=== PATIENT | male | born 1960 | race Hispanic/Latino ===

== ENCOUNTER 2016-10-19 11:13 | Emergency (ER) | payer BC ==
[2016-10-19 11:30] VITALS: TEMP 96.6
--- NOTE | 2016-10-19 11:36 | ED PDOC ---
HPI: Male Pain Time Seen by Provider: 10/19/16 11:34 Chief Complaint (Provider): flank pain History Per: Patient Additional Complaint(s): 55-year-old male with history of kidney stones presents to emergency department with acute onset of right flank pain that started 4 hours ago. Patient also complains of nausea and dry heaving. He rates current pain as a 10 out of 10. No medication taken for pain relief prior to arrival. He states the last time he passed a stone was in 2003. Past Medical History Reviewed: Historical Data, Nursing Documentation, Vital Signs Vital Signs: Last Vital Signs Temp 96.6 F L 10/19/16 11:29 Pulse 75 10/19/16 11:29 Resp 21 10/19/16 11:29 BP 148/113 H 10/19/16 11:29 Pulse Ox 98 10/19/16 11:29 - Medical History PMH: Kidney Stones - Family History Family History: States: No Known Family Hx - Living Arrangements Living Arrangements: With Family - Social History Current smoker - smoking cessation education provided: Yes Alcohol: None Drugs: Denies - Home Medications Home Medications: Ambulatory Orders Medication Instructions Recorded Ibuprofen [Motrin Tab] 800 mg PO Q8 PRN #20 tab 10/19/16 Tamsulosin [Flomax] 0.4 mg PO DAILY #10 cap 10/19/16 - Allergies Allergies/Adverse Reactions: Allergies Allergy/AdvReac Type Severity Reaction Status Date / Time No Known Allergies Allergy Verified 10/19/16 11:42 Review of Systems ROS Statement: Except As Marked, All Systems Reviewed And Found Negative Constitutional: Negative for: Fever Cardiovascular: Negative for: Chest Pain Musculoskeletal: Positive for: Back Pain (flank) Physical Exam - Reviewed Nursing Documentation Reviewed: Yes Vital Signs Reviewed: Yes - Physical Exam Appears: Positive for: Well, Non-toxic, In Acute Distress Skin: Negative for: Rash Eye Exam: Positive for: Normal appearance Cardiovascular/Chest: Positive for: Regular Rate, Rhythm Respiratory: Positive for: Normal Breath Sounds Gastrointestinal/Abdominal: Positive for: Tenderness (RLQ) Back: Positive for: R CVA Tenderness (moderate). Negative for: L CVA Tenderness , Vertebral Tenderness Extremity: Negative for: Pedal Edema Neurologic/Psych: Positive for: Alert, Oriented - Laboratory Results Result Diagrams: 10/19/16 11:50 10/19/16 11:50 Urine dip results: Positive for: Blood (large). Negative for: Leukocyte Esterase, Nitrate, Ketones, Glucose, Bilirubin, Protein - ECG O2 Sat by Pulse Oximetry: 98 Pulse Ox Interpretation: Normal - Other Rad CT abd and pelvis without contrast X-Ray: Read By Radiologist X-Ray Interpretation: see below Medical Decision Making Medical Decision Making: Impression: Acute renal colic Plan: CT abdomen and pelvis without contrast CBC CMP IVF IV toradol IV zofran CT: IMPRESSION: Findings consistent with a recently passed a small approximately 2 mm in which is located in the pelvis which is now located in the right parasagittal posterior urinary bladder. Small fat containing umbilical hernia which also contains a knuckle of unobstructed small bowel. See above discussion for additional details. Patient returned from CAT scan and states he feels much better. Patient urinated and believes he may passed the stone. Call received from radiologist who confirms that CT does demonstrate a recently passed stone. Nausea and pain have resolved as per patient. Patient given prescriptions for Motrin and Flomax. He was advised to drink plenty of fluids. Patient was instructed to follow up with urologist in 1-2 days. Referral was provided. Patient is also aware he can return to ED anytime if acutely worse. Disposition - Clinical Impression Clinical Impression: Ureteral stone - Patient ED Disposition Is Patient to be Admitted: No Counseled Patient/Family Regarding: Studies Performed, Diagnosis, Need For Followup, Rx Given - Disposition Referrals: Jan Peck MD [Medical Doctor] - Shira Mckeon MD [Family Provider] - Disposition: Routine/Home Disposition Time: 13:36 Condition: IMPROVED Additional Instructions: Drink plenty of fluids. Take prescription meds as directed. Follow up with urologist in 1-2 days. Return any time to emergency department if acutely worse. Prescriptions: Ibuprofen [Motrin Tab] 800 mg PO Q8 PRN #20 tab PRN Reason: Pain, Moderate (4-7) Tamsulosin [Flomax] 0.4 mg PO DAILY #10 cap Instructions: Ureteral Stones (ED), Renal Colic (ED) Results - Lab Results Lab Results: 10/19/16 10/19/16 11:50 11:50 WBC 14.8 H RBC 4.83 Hgb 15.7 Hct 46.0 MCV 95.1 H MCH 32.4 H MCHC 34.1 RDW 13.9 Plt Count 232 MPV 8.6 Neut % (Auto) 83.3 H Lymph % (Auto) 11.0 L [place] % (Auto) 3.9 Eos % (Auto) 0.8 Baso % (Auto) 1.0 Neut # 12.3 H Lymph # 1.6 [place] # 0.6 Eos # 0.1 Baso # 0.1 Sodium 143 Potassium 4.5 Chloride 111 H Carbon Dioxide 18 L Anion Gap 19 BUN 19 Creatinine 1.3 Est GFR ( Amer) > 60 Est GFR (Non-Af Amer) 58 Random Glucose 139 H Calcium 9.5 Total Bilirubin 0.6 AST 29 ALT 50 Alkaline Phosphatase 75 Total Protein 7.9 Albumin 4.5 Globulin 3.5 Albumin/Globulin Ratio 1.3
[2016-10-19 11:37] VITALS: BMI 39.0
[2016-10-19] MEDS ORDERED: Sodium Chloride 0.9% 1,000 ML IV STA (11:37)
[2016-10-19 12:02] LABS: BASO # 0.1 K/uL (0.0-0.2); EOS # 0.1 K/uL (0.0-0.7); EOS % 0.8 % (0.0-4.0); HEMOGLOBIN 15.7 g/dL (12.0-18.0); LYMPH # 1.6 K/uL (1.0-4.3); MEAN CELL VOLUME 95.1 fl (80.0-94.0); MEAN CORPUSCULAR HEMOGLOBIN 32.4 pg (27.0-31.0); MEAN CORPUSCULAR HGB CONC 34.1 g/dL (33.0-37.0); MEAN PLATELET VOLUME 8.6 fl (7.2-11.7); MONO # 0.6 K/uL (0.0-0.8); MONO % 3.9 % (0.0-10.0); NEUT # 12.3 K/uL (1.8-7.0); NEUT % 83.3 % (50.0-75.0); RBC 4.83 Mil/uL (4.40-5.90); RED CELL DISTRIBUTION WIDTH 13.9 % (11.5-14.5); WHITE BLOOD COUNT 14.8 K/uL (4.8-10.8)
[2016-10-19 12:14] LABS: ALB/GLOB RATIO 1.3 (1.0-2.1); ALBUMIN 4.5 g/dL (3.5-5.0); ALT/SGPT 50 U/L (21-72); AST/SGOT 29 U/L (17-59); BLOOD UREA NITROGEN 19 mg/dl (9-20); CALCIUM 9.5 mg/dL (8.4-10.2); GFR AFRICAN-AMERICAN > 60; GFR NON-AFRICAN AMERICAN 58
--- NOTE | 2016-10-19 12:54 | CT ---
PROCEDURE: CT abdomen pelvis dated 10/19/2016 HISTORY: The right-sided flank pain COMPARISON: None. TECHNIQUE: Contiguous axial images of the abdomen and pelvis. Oral contrast was administered. No IV contrast given. Coronal and Sagittal reformats generated. Radiation dose: Total exam DLP = 1137.86 mGy-cm. This CT exam was performed using one or more of the following dose reduction techniques: Automated exposure control, adjustment of the mA and/or kV according to patient size, and/or use of iterative reconstruction technique. FINDINGS: LOWER THORAX: No evidence of acute infiltrate effusion or basilar pneumothorax. Heart size is within range of normal. No significant pericardial effusion. LIVER: The liver exhibits normal size measuring approximately 17.6 cm in CC dimension. No obvious hepatic mass collection or calcification. GALLBLADDER AND BILE DUCTS: Gallbladder is physiologically distended. No evidence of intraluminal gallbladder calculi. PANCREAS: Pancreas is somewhat atrophic and fatty replaced. No obvious pancreatic mass collection or calcification. SPLEEN: Spleen exhibits normal size and attenuation pattern without mass collection or calcification. ADRENALS: No adrenal lesions. KIDNEYS AND URETERS: Mild infiltration changes are seen within the right and to a less degree left perinephric spaces. There is mild dilatation of the right ureter with a tiny approximately 2 mm calculus within the right posterior margin of the urinary bladder consistent with recently passed right-sided calculus. No additional calculi are seen. No evidence of left-sided hydronephrosis No evidence of renal mass or collection. . BLADDER: Small calculus within the right posterior aspect of the bladder lumen. The bladder is incompletely distended which may account for slight thick-walled appearance. Possibility of a cystitis cannot be excluded. . REPRODUCTIVE: Prostate gland measures approximate 4.65 cm in transverse dimension APPENDIX: The appendix is unremarkable best visualized on axial image number [id number] and coronal image number [id number]. BOWEL: Evaluation of the bowel is limited due to the lack of oral contrast material. Stomach is incompletely distended which may account for slight thick-walled appearance. Visualized loops of small bowel exhibit normal contour and caliber. No evidence of acute mechanical small bowel obstruction. Stool and air seen throughout the colon. Note made of mild diastases of the abdominus rectus musculature. There is also a small fat containing umbilical hernia that also contains a small knuckle of unobstructed small bowel. PERITONEUM: No gross free intraperitoneal air. No free or loculated fluid collections. LYMPH NODES: Unremarkable. No enlarged lymph nodes. VASCULATURE: No evidence of abdominal aortic or iliac artery aneurysms. BONES: No fracture or destructive lesion. OTHER FINDINGS: None. IMPRESSION: Findings consistent with a recently passed a small approximately 2 mm in which is located in the pelvis which is now located in the right parasagittal posterior urinary bladder Small fat containing umbilical hernia which also contains a knuckle of unobstructed small bowel. See above discussion for additional details. Findings discussed with the emergency room ORESTES Mariee at approximately 12:51 p.m. with written down and read back verification.
[2016-10-19 14:16] VITALS: BP 145/79; PULSE 59; RESP 20; O2SAT 99
== END 2016-10-19 13:50 | disposition home or self-care (01) ==
LOC: H.ER 11:13
DX: N20.1 Calculus of ureter (principal)
CPT/HCPCS: 74176; 80053; 85025; 99282; J1885; J2405; J7040